=== PATIENT | male | born 1960 | race African-American/Black ===

== ENCOUNTER 2020-01-24 10:33 | Inpatient (IN) | payer OTHER ==
[~2020-01-24] VITALS: Ht 180.3 cm; Wt 68.5 kg
[2020-01-24 10:34] VITALS: BP 137/80
[2020-01-24 11:10] LABS: ABSOLUTE NEUTROPHILS 4.9 thou/uL (1.4-8.2); BASOPHILS 0.4 % (0.0-2.0); EOSINOPHILS 0.6 % (0.0-3.0); HEMATOCRIT 40.7 % (42.0-52.0); LYMPHOCYTES 25.9 % (24.0-44.0); MCH 33.6 pg (26.0-34.0); MCHC 34.5 g/dL (28.0-37.0); MCV 97.4 fL (80.0-100.0); MONOCYTES 8.7 % (1.0-8.0); PLATELET COUNT 247 thou/uL (150-400); POLYS 64.4 % (36.0-66.0); RBC 4.17 mil/uL (4.50-6.00); RDW 12.6 % (10.5-14.5); WBC 7.6 thou/uL (4.0-11.0)
[2020-01-24 11:14] LABS: ANION GAP 8 mmol/L (7-16); BUN 10 mg/dL (7-18); CALCIUM 9.4 mg/dL (8.5-10.1); CHLORIDE 92 mmol/L (98-107); CO2 29 mmol/L (21-32); CREATININE 1.5 mg/dL (0.7-1.3); GLUCOSE 130 mg/dL (74-106); SODIUM 129 mmol/L (136-145)
[2020-01-24 11:23] LABS: LIPASE 3809 U/L (73-393); MAGNESIUM 2.2 mg/dL (1.8-2.4); TROPONIN-I <0.06 ng/mL (<0.06)
[2020-01-24 14:10] VITALS: BP 126/96
--- NOTE | 2020-01-24 14:37 | EKG ---
[facility] [place] [address] ELECTROCARDIOGRAM REPORT Name: DESIRE NORMAN Room #: 170-3 ADM IN M.R.#: [id number] Admission: 01/24/20 Attend Phys: Jose Vega MD Discharge: Date of : 60 Report #: [id number] THIS REPORT FOR: cc: FAM - Family physician unknown FAM - Family physician unknown Martín Lowe MD ~ THIS REPORT FOR: //name// [facility] ED Test Date: 2020-01-24 Test Time: 11:17:29 Pat Name: DESIRE NORMAN Department: Room: [facility] Gender: M Hospital Unit Clerk: cecilia bruce : 1960 Requested By: Jean Quigley Order Number: [id number] MD: Martín Lowe Measurements Intervals [place] Rate: 87 P: 70 AK: 179 QRS: 49 QRSD: 93 T: 50 QT: 365 QTc: 439 Interpretive Statements Sinus rhythm RSR' in V1 or V2, probably normal variant No previous ECG available for comparison Electronically Signed On 01-24-2020 14:35:20 CDT by Martín Lowe [email or web address] <ELECTRONICALLY SIGNED> By: Martín Lowe MD 01/24/20 1435 1117 1117 Martín Lowe MD /DEJON
[2020-01-24 14:44] VITALS: BP 130/85
[2020-01-24 17:48] VITALS: BP 141/88
[2020-01-24 18:03] VITALS: BP 147/91
--- NOTE | 2020-01-25 04:06 | NUR ---
ASSUMED CARE AT 1900. PT REPORTS MODERATE HEADACHE, GIVEN TYLENOL ONCE AND AN ICE PACK; DENIES DIZZINESS OR VISION CHANGES, WELL ANY ALCOHOL WITHDRAWAL SYMPTOMS SUCH TREMORS, HALLUCINATIONS, OR SWEATS. DENIES NAUSEA, TOLERATING LIQUID DIET. IVF INFUSING OVERNIGHT; PT CALLS APPROPRIATELY FOR ASSISTANCE TO BATHROOM. NO OTHER CONCERNS, WILL CONTINUE TO MONITOR.
[2020-01-25 05:26] VITALS: BP 139/87
[2020-01-25 07:08] VITALS: BP 149/94
[2020-01-25 12:42] LABS: HEMATOCRIT 33.5 % (42.0-52.0); MCHC 33.7 g/dL (28.0-37.0); MCV 97.9 fL (80.0-100.0); PLATELET COUNT 220 thou/uL (150-400); RBC 3.42 mil/uL (4.50-6.00); RDW 12.6 % (10.5-14.5); WBC 7.1 thou/uL (4.0-11.0)
[2020-01-25 12:46] LABS: HEMOGLOBIN 11.3 gm/dL (14.0-18.0)
[2020-01-25 12:55] LABS: CALCIUM 8.3 mg/dL (8.5-10.1); CREATININE 0.8 mg/dL (0.7-1.3); POTASSIUM 3.4 mmol/L (3.5-5.1)
[2020-01-25 13:19] LABS: ABSOLUTE NEUTROPHILS 5.7 thou/uL (1.4-8.2); ANISOCYTOSIS 1+
[2020-01-25 13:20] LABS: POLYCHROMASIA OCCASIONAL
[2020-01-25 15:13] VITALS: BP 140/84
[2020-01-25 15:52] VITALS: BP 140/84
--- NOTE | 2020-01-25 15:53 | NUR ---
Case discussed with the care team and chart reviewed. Line Therapist spoke with the pt via phone. He is a&ox4 and indicates that he fell at work and hit his head/neck. He is feeling a little better today and hoping to go home tomorrow. He is and lives with his and adult kids. He does not have health insurance in place but his employer has put him in contact with the workers comp liason for his company. They will be sending him paperwork to complete. He is normally indep with gait and adl's. His can pick him up at sc and she is his primary contact. He is familiar with [facility] as well as other [facility] clinics. He is planning on est a pcp with one of these clinics at sc. He is familiar with AA but does not feel abstaining from ethol will be an issue for him. No cm interventions indicated at this time. [facility] resources noted on the pt's sc instructions.
--- NOTE | 2020-01-25 16:08 | NUR ---
PT A&OX4. AMBULATES WITH STANDBY ASSIST. IV INFUSING FLUIDS IN L AC W/O COMPS. DENIES SYNCOPE OR N/V. DOES HOWEVER C/O HEADACHE. TOLERATING PO WELL, TYLENOL GIVEN. CALL LIGHT W/I REACH.
[2020-01-25 19:10] VITALS: BP 143/97
[2020-01-26 00:34] VITALS: BP 149/93
[2020-01-26 04:00] VITALS: BP 137/81
[2020-01-26 05:50] LABS: HEMATOCRIT 32.3 % (42.0-52.0); HEMOGLOBIN 10.9 gm/dL (14.0-18.0); MCH 33.4 pg (26.0-34.0); MCHC 33.6 g/dL (28.0-37.0); MCV 99.3 fL (80.0-100.0); RBC 3.25 mil/uL (4.50-6.00); RDW 12.6 % (10.5-14.5); WBC 6.2 thou/uL (4.0-11.0)
[2020-01-26 05:55] LABS: CALCIUM 8.2 mg/dL (8.5-10.1); CREATININE 0.8 mg/dL (0.7-1.3); POTASSIUM 3.6 mmol/L (3.5-5.1)
--- NOTE | 2020-01-26 07:10 | NUR ---
PROGRESS PT A/O X4 , UP WITH SBA GAIT STEADY DENIES SYNCOPE. VSS. IV INFUSING WITHOUT DIFFICULTY. TAKING PO IN ADEQUATE AMOUNTS. FALL PRECAUTIONS IN PLACE PT USES CALL LIGHT APPROPRIATELY CONTINUE POC.
[2020-01-26 07:16] VITALS: BP 141/85
[2020-01-26 11:49] VITALS: BP 143/92
[2020-01-26 11:52] VITALS: BP 126/88
[2020-01-26 11:54] VITALS: BP 127/87
--- NOTE | 2020-01-26 14:04 | NUR ---
Assumed pt care this am, VS stable. diet and medications are tolerated well. POC followed witn no signs or verbalizations of distress noted. IV removed, dc instructions given to the pt. Pt is now dc.
== END 2020-01-26 13:55 | disposition home or self-care (01) | DRG 682 ==
LOC: ER 10:33 → EROBS 13:00 → 4W 17:57
PROVIDERS: Emergency Medicine; Internal Medicine; Nurse Practitioner; ADMIT Hospitalist
DX: N17.9 Acute kidney failure, unspecified (principal); K85.20 Alcohol induced acute pancreatitis without necrosis or infection; E87.1 Hypo-osmolality and hyponatremia; E87.6 Hypokalemia; F10.10 Alcohol abuse, uncomplicated; I10 Essential (primary) hypertension; Z96.643 Presence of artificial hip joint, bilateral; Z88.6 Allergy status to analgesic agent; Z79.899 Other long term (current) drug therapy
CPT/HCPCS: 10045

== ENCOUNTER 2020-03-31 08:26 | Emergency (ER) | payer OTHER ==
[~2020-03-31] VITALS: Ht 180.3 cm; Wt 68.5 kg
[2020-03-31 10:13] VITALS: BP 157/110
[2020-03-31] MEDS ORDERED: ULTRAM 50MG TAB50 MG PO (10:15)
== END 2020-03-31 10:13 | disposition home or self-care (01) ==
LOC: ER 08:26
DX: S30.0XXA Contusion of lower back and pelvis, initial encounter (principal); S50.01XA Contusion of right elbow, initial encounter; I10 Essential (primary) hypertension; Z88.6 Allergy status to analgesic agent; W11.XXXA Fall on and from ladder, initial encounter; Y93.89 Activity, other specified; Y92.89 Other specified places as the place of occurrence of the external cause; Y99.8 Other external cause status

== ENCOUNTER 2021-03-04 11:03 | Inpatient (IN) | payer OTHER ==
[~2021-03-04] VITALS: Ht 180.3 cm; Wt 68.0 kg
--- NOTE | ~2021-03-04 | O ---
[facility] [place] [address] OPERATIVE REPORT Name: PAWAN NORMAN Room #: 440-P ADM IN M.R.#: [id number] Admission: 03/04/21 Attend Phys: Brigido Cotton MD Discharge: Date of : 60 Report #: [id number] THIS REPORT FOR: cc: FAM - Family physician unknown FAM - Family physician unknown Tatyana Manrique MD ~ DOC #: [id number] Tatyana Manrique MD DATE OF SERVICE: 03/04/2021 PREOPERATIVE DIAGNOSIS: Left infectious olecranon bursitis. POSTOPERATIVE DIAGNOSIS: Left infectious olecranon bursitis. PROCEDURE PERFORMED: Left elbow incision and debridement, olecranon bursa and subcutaneous tissue. SURGEON: Tatyana Manrique MD ANESTHESIA: General mask anesthesia. ESTIMATED BLOOD LOSS: Minimal. TOURNIQUET TIME: 24 minutes. COMPLICATIONS: None. CONDITION: Stable. DISPOSITION: Recovery room. IMPLANTS USED: Hemovac was placed. INDICATIONS: The patient is a 60-year-old male with the above-mentioned diagnosis. He elects for operative treatment. The risks, benefits, alternatives and complications were discussed including but not limited to infection, damage to vessels or nerves, incomplete relief or worsening of any symptoms. Informed consent was obtained. The correct extremity was identified and labeled by myself after verbal confirmation of the patient as well as visual confirmation and signed informed consent. DESCRIPTION OF PROCEDURE: The patient was brought to the OR and placed in a supine position. He had previously been placed on antibiotics and cultures taken in ER. Left extremity was sterilely prepped and draped in the usual fashion. Final timeout was taken to verify correct patient, operative procedure, operative site, all concurred. The arm was elevated, but was not [address] [address] OPERATIVE REPORT Name: PAWAN NORMAN Room #: 440-P ADM IN M.R.#: [id number] Admission: 03/04/21 Attend Phys: Brigido Cotton MD Discharge: Date of : 60 Report #: [id number] exsanguinated and the tourniquet was inflated. Next, a wound measuring approximately 5 mm noted on the posterior aspect of the olecranon. Copious amounts of purulent fluid were obtained during the prepping and draping. The wound was extended for approximately 5 cm distal and 3 cm proximal. A rongeur was used to debride any portion of the bursa as well as any unhealthy tissue. The fluid tracked subcutaneously for approximately 10 cm. This area was thoroughly debrided as well. Once the area was thoroughly debrided, 3 liters of antibiotic saline were irrigated through the wound. Good care of milk to perform a retrograde milking type maneuver in order to locate and debride any distal subcutaneous tracts of purulent fluid. Once this was done to satisfaction, the wound was then closed with 3-0 nylon suture. A deep drain was placed. It was affixed to skin with an Op-Site. The wound was dressed with Xeroform and sterile gauze. He was placed in a bulky dressing and a posterior slab elbow splint. All fingers were pink and brisk capillary refill at the conclusion of the case. After deflation of tourniquet, all sponge and needle counts were correct. The patient transferred to postoperative recovery room in stable condition. Tatyana Manrique MD VAD/KDA By: 1832 [id number] Tatyana Manrique MD /nt
--- NOTE | ~2021-03-04 | HC ---
[facility] [place] [address] CONSULTATION Name: PAWAN NORMAN Room #: 440-P ADM IN M.R.#: [id number] Admission: 03/04/21 Attend Phys: Brigido Cotton MD Discharge: Date of : 60 Report #: [id number] THIS REPORT FOR: cc: FAM - Family physician unknown FAM - Family physician unknown Tatyana Manrique MD ~ DOC #: [id number] Tatyana Manrique MD DATE OF SERVICE: 03/04/2021 On clarification, the patient did not have another fall yesterday resulting in hip pain. He reports moving and feeling a pop and having left hip pain after the pop. Tatyana Manrique MD VAD/PUN By: [id number] 2234 Tatyana Manrique MD /nt
--- NOTE | ~2021-03-04 | HC ---
[facility] [place] [address] CONSULTATION Name: PAWAN NORMAN Room #: 440- ADM IN M.R.#: [id number] Admission: 03/04/21 Attend Phys: Brigido Cotton MD Discharge: Date of : 60 Report #: [id number] THIS REPORT FOR: cc: FAM - Family physician unknown FAM - Family physician unknown Tatyana Manrique MD ~ DOC #: [id number] Tatyana Manrique MD DATE OF SERVICE: 03/04/2021 REASON FOR CONSULTATION: Left elbow abscess with drainage. HISTORY OF PRESENT ILLNESS: The patient is a 60-year-old right hand dominant male who has had multiple falls over the last few weeks. He reports falling off his porch approximately 8 days ago and sustaining a wound to his left posterior elbow. He had some bleeding and then purulent drainage that has worsened over the last week with increasing pain and swelling. He also reported another fall yesterday and reports difficulty weightbearing and left hip pain. He has had no treatment. REVIEW OF SYSTEMS: NEUROLOGIC: Denies numbness or tingling. MUSCULOSKELETAL: See HPI. SURGICAL HISTORY: Bilateral total hip arthroplasties and right wrist tendon repair. ALLERGIES: ASPIRIN. MEDICATIONS: Home medications from the list include tramadol. PAST MEDICAL HISTORY: Significant for hypertension and probable alcohol abuse. 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 Denies smoking. Does use marijuana daily. Drinks about half a pint and 2 beers daily. LABORATORY STUDIES: On 03/04/2021 showed white blood cell count 21.6, hemoglobin 11.7, hematocrit 34, platelet count 341. ESR is 144. Chemistry: Sodium 134, potassium is low at 2.7. CRP is elevated at 221. COVID test is negative. PHYSICAL EXAMINATION: GENERAL: He is awake, alert and oriented. He interacts appropriately. He is a well-developed, but thin male in no acute distress. He is lying on his stretcher. [address] [address] CONSULTATION Name: PAWAN NORMAN Room #: [address] [place] [address] IN M.R.#: [id number] Admission: 03/04/21 Attend Phys: Brigido Cotton MD Discharge: Date of : 60 Report #: [id number] VITAL SIGNS: Most recent vital signs show a heart rate of 88, respiratory rate 16, blood pressure 128/81, pulse oximetry is 99% on room air. EXTREMITIES: Examination of his right upper extremity, skin is clean, dry and intact, brisk capillary refill, grossly motor and sensory intact. Left upper extremity: Brisk capillary refill. Grossly normal sensory and motor. His skin is clean and dry and intact with the exception of posterior olecranon wound that measures approximately 5 mm and purulent fluid is emanating from it. There is also moderate amount of erythema and edema in the proximal portion of the arm. The compartments are soft. He is able to make full fist, full extension. Bilateral lower extremity exam: He is very thin. His greater tuberosities were palpable. He has tenderness on the greater tuberosity on the left, none on the right. No pain with hip range of motion bilaterally. Motor and sensory are grossly intact. Skin is clean, dry and intact. RADIOGRAPHS: AP and lateral of the left elbow showed no bony abnormality. MRI IV contrast: The left elbow does not show any osseous abnormality or indication of osteomyelitis. Of note, there is gas in the soft tissues, presumably from the wound. IMPRESSION AND PLAN: 1. Left infected olecranon bursitis with copious amount of purulent fluid draining. Recommend incision and drainage. We discussed the procedure as well as postoperative course. The risks, benefits, alternatives and complications were discussed including but not limited to inability to resolve the infection, necessitating more surgery, infection, wound healing problems, damage to blood vessels or nerves. Informed consent was obtained. 2. left hip pain. We will order radiographs upon arrival to the postoperative recovery room after surgery as I do not want to delay debridement of this infected olecranon bursa. MD SILVINO Burnham/ROSE/LEONEL By: [id number] [id number] Tatyana Manrique MD /nt
[~2021-03-04 11:03] MED LIST: ULTRAM 50MG TAB50 MG PO
[2021-03-04 11:05] VITALS: BP 115/72
[2021-03-04 12:10] LABS: HEMOGLOBIN 11.7 gm/dL (14.0-18.0); MCH 32.5 pg (26.0-34.0); MCHC 34.4 g/dL (28.0-37.0); MCV 94.4 fL (80.0-100.0); PLATELET COUNT 341 thou/uL (150-400); RDW 12.5 % (10.5-14.5); WBC 21.6 thou/uL (4.0-11.0)
[2021-03-04 12:21] LABS: CREATININE 1.2 mg/dL (0.7-1.3)
[2021-03-04 12:29] LABS: POTASSIUM 2.7 mmol/L (3.5-5.1)
[2021-03-04 12:48] LABS: ALBUMIN 2.3 g/dL (3.4-5.0); DIRECT BILIRUBIN 0.2 mg/dL (<0.1-0.2); TOTAL BILIRUBIN 0.5 mg/dL (0.2-1.0)
[2021-03-04 13:31] LABS: ABSOLUTE NEUTROPHILS 18.1 thou/uL (1.4-8.2)
[2021-03-04 13:32] LABS: ANISOCYTOSIS SLIGHT
[2021-03-04 14:36] LABS: BE(vivo) 7.3 mmol/L (-2 to +3); HCO3 32.3 mmol/L (22.0-26.0); PCO2 VENOUS 46.9 mmHg (41.0-51.0)
--- NOTE | 2021-03-04 18:00 | NUR ---
PT RECEIVED FROM THE ER AT 1500 AFTER REPORT FROM RN. BARBI DANIELLE AND KCL INFUSING ON ADMISSION. PT SEEN BY DR. BUNN IN ER AND PLANS ON DOING SURGERY ON LT ELBOW INFECTION. PT HAS BEEN NPO. 2ND BAG OF KCL INFUSING. DR. GALINDO CONSULTED AND WILL SEE PT IN AM. PT TO THE OR AT THIS TIME PER BED.
[2021-03-04 20:30] VITALS: BP 151/77
[2021-03-04 21:00] VITALS: BP 137/92
[2021-03-04 22:00] VITALS: BP 137/92
[2021-03-04 23:03] VITALS: BP 142/92
[2021-03-05] VITALS: BP 148/88
--- NOTE | 2021-03-05 04:16 | NUR ---
PT ARRIVED FROM SURGERY AT 202O. A&OX4. IV INTACT WITH FLUIDS INFUSING. VITAL SIGNS STABLE. 100% ON RA. HYDROCODONE GIVEN FOR PAIN OF 5/10. HEMOVAC DRAIN INTACT. LEFT ELBOW DRESSING WRAPPED. URINAL BY BEDSIDE. PT HENRIETTA CLEAR LIQUID DIET. FALL PREC IN PLACE AND CALL LIGHT AT REACH WILL CONT TO MONITOR.
[2021-03-05 04:38] VITALS: BP 155/98
[2021-03-05 05:38] LABS: ABSOLUTE NEUTROPHILS 21.3 thou/uL (1.4-8.2); BASOPHILS 0.2 % (0.0-2.0); HEMATOCRIT 35.7 % (42.0-52.0); LYMPHOCYTES 3.4 % (24.0-44.0); MCH 32.2 pg (26.0-34.0); MCHC 33.5 g/dL (28.0-37.0); MCV 96.2 fL (80.0-100.0); MONOCYTES 3.8 % (1.0-8.0); PLATELET COUNT 383 thou/uL (150-400); POLYS 92.6 % (36.0-66.0); RBC 3.71 mil/uL (4.50-6.00); RDW 12.8 % (10.5-14.5)
[2021-03-05 05:48] LABS: CALCIUM 8.8 mg/dL (8.5-10.1); MAGNESIUM 2.3 mg/dL (1.8-2.4); POTASSIUM 3.2 mmol/L (3.5-5.1)
--- NOTE | 2021-03-05 07:17 | EKG ---
[place] [address] [facility] [place] [address] ELECTROCARDIOGRAM REPORT Name: PAWAN NORMAN Room #: 440-P ADM IN M.R.#: [id number] Admission: 03/04/21 Attend Phys: Brigido Cotton MD Discharge: Date of : 60 Report #: [id number] [facility] ED Test Date: 2021-03-04 Test Time: 11:40:16 Pat Name: PAWAN NORMAN Department: Room: 440 Gender: M Operations Intelligence Superintendent: JCHAIKAROLINE : 1960 Requested By: Antonio Mcneil Order Number: [id number] MD: Gerard Cardona Measurements Intervals [place] Rate: 84 P: 72 AR: 177 QRS: 33 QRSD: 98 T: 46 QT: 348 QTc: 412 Interpretive Statements Sinus rhythm Probable left atrial enlargement RSR' in V1 or V2, probably normal variant Compared to ECG 01/24/2020 11:17:29 No significant changes Electronically Signed On 03-05-2021 7:17:17 CDT by Gerard Cardona [email or web address] <ELECTRONICALLY SIGNED> By: Gerard Cardona MD, [facility] 03/05/21 0717 1140 1140 Gerard Cardona MD, [facility] /EPI
[2021-03-05 08:02] VITALS: BP 145/87
--- NOTE | 2021-03-05 11:44 | NUR ---
ASSUMED PT CARE THIS AM. PATIENT A&OX4, ABLE TO MAKE NEEDS KNOWN. IV PATENT, SALINE LOCKED. LEFT ELBOW DRESSING C/D/I. PATIENT HAS A HEMOVAC IN PLACE. PATIENT REPORTING NO PAIN. CIWA BEING COMPLETED ORDERED. PATIENT REMAINS CONTINENT, AMBULATORY WITH ASSIST TO THE BATHROOM. PATIENT REPORTS HAVING A BOWEL MOVEMENT YESTERDAY. PATIENT IS ON ROOM AIR. PATIENT ABLE TO MOVE FINGERS ON BOTH HANDS WITHOUT ISSUE, REPORTING NO NUMBNESS OR TINGLING. PATIENT TOOK ALL MEDICATIONS WITHOUT ISSUE. FALL PRECAUTIONS ARE IN PLACE, CALL LIGHT WITHIN REACH.
--- NOTE | 2021-03-05 14:21 | NUR ---
ASSESSMENT: CM REVIEWED CHART AND SPOKE WITH PATIENT AT THE BEDSIDE. PT IS ALERT AND ORIENTED X4. PT REPORTS THAT HE LIVES IN A DUPLEX WITH HIS , TWO CHILDREN, AND GRANDCHILDREN. PT REPORTS THAT HE IS NORMALLY INDEPENDENT BUT DOES HAVE A WALKER AT HOME TO ASSIST IF NEEDED. PT WAS ADMITTED WITH GAS GANGRENE OF UPPER EXTREMITY. PT IS CURRENTLY ON IV ANBX AND ID IS FOLLOWING. PT REPORTS HE HAS HAD HOME HEALTH YEARS AGO BUT UNSURE THE AGENCY. PT REPORTS IF HE NEEDS HH AGAIN HE HAS NO PREFERENCE OF HH AGENCY. PT REPORTS HE HAS ONE STEP TO GET IN THE HOME AND TO HIS BEDROOM. PT REPORTS HE HAS NOT HAD A POST ACUTE CARE STAY IN THE PAST. CM WILL CONTINUE TO FOLLOW TO ASSIST NEEDED. AWAITING ON DETERMINATION OF PLAN FOR ANBX WELL.
[2021-03-05 15:16] VITALS: BP 127/87
[2021-03-05 19:23] VITALS: BP 132/92
--- NOTE | 2021-03-06 03:26 | NUR ---
ASSESSED AT START OF SHIFT. PT RESTING IN BED. HYDROCODONE GIVEN FOR LEFT ELBOW PAIN. DRESSING C/D/I. UP WITH SBA TO THE BATHROOM. CIWA SCORE 0. NO SIGNS AND SYMPTOMS OF ALCOHOL WITHDRAWAL. FALL PREC IN PLACE. IV ABX PROVIDED. WILL CONT TO MONITOR TILL EOS.
[2021-03-06 04:32] VITALS: BP 151/111
[2021-03-06 08:15] VITALS: BP 176/102
--- NOTE | 2021-03-06 10:29 | NUR ---
ASSUMED PT CARE THIS AM. PT A&OX4, ABLE TO MAKE ALL NEEDS KNOWN. IV PATENT, SALINE LOCKED. DRESSING TO LEFT ELBOW REMAINS C/D/I. PATIENT REPROTS PAIN THAT RESPINDS WELL TO PAIN MEDS GIVEN PER EMAR. PATIENT HAS A HEMOVAC TO THE LEFT ELBOW. CIWA ASSESSMENT BEING COMPLETED. PATIENT ON ROOM AIR. BOTH IV'S REMAIN PATENT. PATIENT TOOK ALL MEDS WITHOUT ISSUE. BLOOD PRESSURE WAS ELEVATED WITH MORNING VITALS, PHYSICIAN NOTIFIED AND NEW ORDER RECEIVED. FALL PRECAUTIONS ARE IN PLACE, CALL LIGHT WITHIN REACH.
--- NOTE | 2021-03-06 11:47 | HC ---
[facility] [place] [address] CONSULTATION Name: PAWAN NORMAN Room #: 440- ADM IN M.R.#: [id number] Admission: 03/04/21 Attend Phys: Brigido Cotton MD Discharge: Date of : 60 Report #: [id number] THIS REPORT FOR: cc: FAM - Family physician unknown FAM - Family physician unknown Campbell Mauricio MD ~ DOC #: [id number] Campbell Mauricio MD DATE OF SERVICE: 03/05/2021 INFECTIOUS DISEASE CONSULTATION ATTENDING PHYSICIAN: Dr. Cotton. REASON FOR EVALUATION: Left olecranon septic bursitis. HISTORY OF PRESENT ILLNESS: Chart reviewed. The patient examined. This is a 69-year-old man with history of hypertension, previous pancreatitis, who sustained injury as a result of a fall to the left elbow. He noted increasing pain and discomfort at the site. He was evaluated in the Emergency Room. The plain film showed soft tissue swelling, nothing for bony abnormality or subluxation. There was gas within the soft tissue; however, markedly elevated CRP to 221. MRI of the elbow was done, it showed circumferential subcutaneous edema, did undergo operative debridement, was found to have a septic olecranon bursitis, did have markedly elevated sed rate of 118 as well. Blood cultures are sterile thus far. Culture now with growth of group A strep. He notes he feels significantly better at this point, had been empirically started on vancomycin and Zosyn. ALLERGIES: ASPIRIN. MEDICATIONS: Include thiamine, famotidine, Zosyn, p.r.n. analgesics, antiemetics, anxiolytics vancomycin. PAST MEDICAL HISTORY: As noted above, hypertension, bilateral hip replacements, history of pancreatitis, history of depression. SOCIAL HISTORY: Does not smoke tobacco. Occasional illicit drug use, marijuana. He has history of ethanol excess; now reports special occasions. FAMILY HISTORY: Noncontributory. REVIEW OF SYSTEMS: Otherwise, unremarkable. Denies any pulmonary or gastrointestinal related complaints. PHYSICAL EXAMINATION: [facility] [address] [place] [address] CONSULTATION Name: PAWAN NORMAN Room #: 440-P [facility] IN M.R.#: [id number] Admission: 03/04/21 Attend Phys: Brigido Cotton MD Discharge: Date of : 60 Report #: [id number] GENERAL: Appears somewhat chronically ill, undernourished; he is pleasant, cooperative. He is lucid. VITAL SIGNS: Temperature 98.7, pulse 61, respirations 18, blood pressure 145/87. SKIN: Warm, dry, no rashes. HEENT: Normocephalic. Extraocular muscles intact. NECK: Supple. LUNGS: Clear to auscultation bilaterally. HEART: Regular. I do not appreciate a murmur, borderline bradycardic. ABDOMEN: Soft, nontender, nondistended. SKIN: Left upper extremity mid portion has a surgical dressing in place with drain. GENITOURINARY AND RECTAL: Deferred. LABORATORY DATA: Culture with growth of group B strep. Blood cultures sterile thus far. Sed rate 118. Electrolytes: Sodium 135, potassium 3.2, chloride 96, bicarbonate 30, anion gap of 9, BUN and creatinine 13 and 1.0, glucose of 110. CBC: White count of 23, H and H of 12.0 and 35.7, platelets of 383. MRI as described above. ASSESSMENT AND PLAN: Left septic bursitis secondary to group A strep. We will adjust antimicrobial therapy. Continue with Unasyn. Pending further results. Likely a mono-microbial etiology. Continue wound care as prescribed. He is dramatically improved subjectively. Continue to optimize nutritional status. Add incentive spirometry. Monitor expectantly for possibility of withdrawal. Campbell Mauricio MD JWLuis Daniel/STANTON <ELECTRONICALLY SIGNED> By: Campbell Mauricio MD 03/06/21 1147 0939 1103 Campbell Mauricio MD /nt
--- NOTE | 2021-03-06 15:00 | NUR ---
ON-GOING ASSESSMENT; CM REVIEWED CHART AND SPOKE WITH PT. PT REMAINS ON IV ANBX BUT ATTENDING ANTICIPATES PT WILL LIKELY BE ABLE TO TRANSITION TO PO ANBX. ID IS FOLLOWING. CM DISCUSSED HH WITH PATIENT AND HE IS AGREEABLE WITH REFERRAL AND HAS NO PREFERENCE OF HH AGENCY. REFERRAL WAS SENT TO [facility].
[2021-03-06 15:48] VITALS: BP 141/91
[2021-03-06 20:00] VITALS: BP 109/78
--- NOTE | 2021-03-07 01:45 | NUR ---
ASSESSED AT START OF SHIFT. PT RESTING IN BED. A&OX4. RATES PAIN 6/10 HYDROCODONE GIVEN. LEFT ELBOW DRESSING INTACT. IV IN PLACE AND ABX GIVEN. NO FURTHER SIGNS OF DISCOMFORT WILL CONT TO MONITOR.
[2021-03-07 04:13] VITALS: BP 150/80
[2021-03-07 05:46] LABS: MCH 32.2 pg (26.0-34.0); MCHC 33.4 g/dL (28.0-37.0); MCV 96.2 fL (80.0-100.0); RBC 3.11 mil/uL (4.50-6.00); RDW 12.9 % (10.5-14.5)
[2021-03-07 08:00] VITALS: BP 121/52
--- NOTE | 2021-03-07 15:34 | NUR ---
ON-GOING ASSESSMENT: CM REVIEWED CHART. ID IS FOLLOWING PATIENT AND RECOMMENDING CEFTRIAXONE 2 GM IV DAILY. CM SPOKE WITH PATIENT. CM ENCOURAGED PATIENT TO CONTACT HR AT [employer] WHO WAS HIS EMPLOYER AND ASK IF HIS INSURANCE CEASED THE DAY HE WAS LET GO AND IF HE IS ELEGIBILE FOR COBRA AND IF SO HOW MUCH IT COST. PT REPORTS HE WOULD CONTACT THEM. CM MET AGAIN WITH PATIENT AND REPORTS HE WAS SO UPSTE HE HUNG UP ON THEM BUT STATES HE DOES NOT HAVE ACTIVE INSURANCE AND TO HIS UNDERSTANDING IT STOPPED THE DAY HE WAS LET GO. CM NOTIFIED ATTENDING. CM ALSO DISCUSSED WITH TEAM DURING LOS AND ALTERNATIVE OPTIONS. 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 JANE THERE AFTER FOR PLAN. CM DIRECTOR NOTIFIED OUTPT THERAPY. PT HAD PICC PLACED. AWAITING FINAL DECISION AT THIS TIME.
[2021-03-07 16:17] VITALS: BP 134/78
--- NOTE | 2021-03-07 17:20 | NUR ---
A #4F SINGLE LUMEN PICC WAS PLACED PER HOSPITAL POLICY IN THE RIGHT UPPER ARM BASILIC. THE VEIN WAS WIDLEY PATENT. THE LINE WAS TRIMMED TO 44CM AND ADVANCED AND CONFIRMED AT 2CM EXTERNAL. LINE WAS SECURED AND RELEASED FOR USE
--- NOTE | 2021-03-07 18:30 | NUR ---
PT ASSESSED AT START OF SHIFT. STATES LT ARM NOT HURTING NOW. DSNG CHANGED ELBOW SUTURES INTACT -SEROSANGUINOUS DRAINAGE ON ABD. REDRESSED W/ XEROFORM, ABD AND COTTON WRAP W/ VAL WRAP OVER. EATING ADN DRINKING BETTER. IV ANTIBIOTICS CHANGED PER DR. JANE. PICC LINE PLACED PER IV NURSE THIS AFTERNOON. PLANS FOR DC TOMORROW AND WILL COME FOR IV ANTIBIOTICS DAILY AT THE HOSPITAL.
[2021-03-07 20:10] VITALS: BP 105/62
--- NOTE | 2021-03-08 01:30 | NUR ---
ASSUMED PT CARE AT 1935. INTRODUCED SELF TO PT. PT WAS PLEASANT AND INTERACTIVE. PT'S DRSG ON THE L ELBOW CLEAN AND INTACT AND NO DRAINAGE WAS NOTED. PT COMPLAINED OF PAIN TO THE L HIP AND ELBOW WHICH WAS MANAGED WITH MEDS. PT HAD A PICC WITH ONE LUMEN, DRSG WAS INTACT AND NO SIGN OF REDNESS OR INFILTRATION WAS NOTED. FALL PRECAUTIONS IN PLACE AND CALL LIGHT WITHIN REACH.
[2021-03-08 03:43] VITALS: BP 140/105
[2021-03-08 04:32] VITALS: BP 109/73
--- NOTE | 2021-03-08 05:45 | NUR ---
TUBING DRIER called for sudden onset of chest pain. See TUBING DRIER flowsheet.
--- NOTE | 2021-03-08 06:38 | NUR ---
THIS NURSE WAS CALLED TO THE PT'S ROOM FOR C/O SUDDEN ONSET OF CHEST PAIN. PT STATED THAT THE PAIN STARTED ALMOST AN HOUR BEFORE HE CALLED OUT.PT STATED THAT HE HAS HAD THAT KIND OF PAIN A COUPLE OF TIMES IN THE PAST THAT WAS WHY HE DID NOT CALL OUT IMMEDIATELY.VITALS WAS STABLE WERE BP 145/104,P 82,O2 SAT 100% ON RA,R 20 T 98.4.STAND UP FORKLIFT OPERATOR ON DUTY AND BACK TENDER NOTIFIED.RAPID RESPONSE TEAM CALLED.STAT EKG DONE PER ORDER.NITRO GIVEN X1,PT STATED THAT HE FELT BETTER.PT WAS TRANSFERRED TO CCU RM 209 IN A STABLE CONDITION.PT LEFT WITH ALL HIS PERSONAL BELONGINGS.VITALS BEFORE HE LEFT WAS BP 101/64,O2 SAT 100%, P 100, R 17.RPORT CALLED TO THE NURSE TAKING THE PT.
[2021-03-08 07:55] VITALS: BP 108/74
--- NOTE | 2021-03-08 09:09 | EKG ---
[address] [place] [address] ELECTROCARDIOGRAM REPORT Name: PAWAN NORMAN Room #: 206-P ADM IN M.R.#: [id number] Admission: 03/04/21 Attend Phys: Brigido Cotton MD Discharge: Date of : 60 Report #: [id number] [facility] Test Date: 2021-03-08 Test Time: 03:48:41 Pat Name: PAWAN NORMAN Department: Room: 206 Gender: M Fire Protection Specialist: FABIO : 1960 Requested By: Malia Gray Order Number: [id number] MD: Avelino Polk Measurements Intervals [place] Rate: 81 P: 48 [place]: 57 QRS: 34 QRSD: 104 T: 31 QT: 359 QTc: 417 Interpretive Statements Sinus rhythm No significant abnormality Compared to ECG 03/04/2021 11:40:16 No significant change Electronically Signed On 03-08-2021 9:09:20 CDT by Avelino Polk [email or web address] <ELECTRONICALLY SIGNED> By: Avelino Polk MD, [facility] 03/08/21908 0348 0348 Avelino Polk MD, FAC /EPI
[2021-03-08] MEDS ORDERED: CLONIDINE HCL0.1 MG PO (09:29)
[2021-03-08] MEDS ORDERED: HYDROCODON-ACE1 EAC7 PO (09:29)
[2021-03-08] MEDS ORDERED: ROCEPHIN 11 GM/1001 IV (09:29)
[2021-03-08] MEDS ORDERED: PROTONIX40 M2 PO (09:31)
[2021-03-08 11:04] VITALS: BP 108/74
--- NOTE | 2021-03-08 13:48 | NUR ---
on-going assessment: CM REVIEWED CHART AND SPOKE WITH ATTENDING WELL PATIENT. PT WAS MOVED TO CCU DUE TO CHEST PAIN. CM SPOKE WITH ATTENDING AND PLANS ARE TO DISCHARGE HOME TODAY. CM REACHED OUT TO CM DIRECTOR AND ALSO OUTPATIENT INFUSION CLINIC [facility] HAS APPROVED FOR ONE WEEK CEFTRIANXONE 2GM IV DAILY AT [facility] OUTPATIENT INFUSION. PT HAS PICC LINE IN. [facility] IS NOTIFIED AND AWARE OF SITUATION. CM ALSO SPOKE WITH PATIENT AND INSTRUCTED HIM THAT HE WILL HAVE TO COME IN THE ER ON THURSDAY AND THURSDAY FOR HIS INFUSION AND TO CONTACT THE ER AN HOUR BEFORE HE ARRIVES. CM PROVIDED PATIENT WITH THE CONTACT NUMBER. PT IS THEN TO COME TO THE [facility]ION [facility] AND CONTACT [facility] WHEN HE IS ON HIS WAY. CM NOTIFIED PT AND PROVIDED THE NUMBER FOR OUTPATIENT INFUSION AND ALSO INCLUDED THIS ON THE DISCHARGE PAPERWORK. CM ALSO SPOKE WITH CM DIRECTOR AND VOUCHERED HIS MEDICATION COSTING 24.55. PTS IS HERE TO PROVIDE TRANSPORTATION HOME AND WILL BE ABLE TO TAKE HIM TO AND FROM OUTPATIENT INFUSION. PT REPORTS NO FURTHER NEEDS FROM CM. REPORTS SHE IS STILL FOLLOWING UP WITH HIS EMPLOYER FOR POSSIBLE [employer] INSURANCE.
--- NOTE | 2021-03-08 13:59 | NUR ---
ASSESSMENT CHARTED. PT ALERT AND ORIENTED. VSS. DENIED HAVING PAIN OR DISCOMFORT. SEEN BY DR. CARDONA. ORDERS GIVEN TO DISCHARGE PT TO HOME. DISCHARGE INSTRUCTIONS GIVEN TO PT AND THE . THEY BOTH VERBERLISED UNDERSTANDING.
== END 2021-03-08 14:15 | disposition home or self-care (01) | DRG 501 ==
LOC: ER 11:03 → EROBS 13:21 → 4S 13:21 → 2N 03-08 04:29
PROVIDERS: Emergency Medicine; Hospitalist; ADMIT Internal Medicine; ATTEND Internal Medicine
PROC: 0JDH0ZZ Extraction of Left Lower Arm Subcutaneous Tissue and Fascia, Open Approach (ICD-10-PCS; 2021-03-04)
PROC: 02HV33Z Insertion of Infusion Device into Superior Vena Cava, Percutaneous Approach (ICD-10-PCS; principal; 2021-03-07)
DX: M71.122 Other infective bursitis, left elbow (principal); I96 Gangrene, not elsewhere classified; I10 Essential (primary) hypertension; Z96.643 Presence of artificial hip joint, bilateral; E87.6 Hypokalemia; F32.9 Major depressive disorder, single episode, unspecified; B95.0 Streptococcus, group A, as the cause of diseases classified elsewhere; M71.022 Abscess of bursa, left elbow; F10.10 Alcohol abuse, uncomplicated; Z60.2 Problems related to living alone; Z20.822 Contact with and (suspected) exposure to COVID-19; Z88.6 Allergy status to analgesic agent; Z79.899 Other long term (current) drug therapy
CPT/HCPCS: 10102; 27000; 50010; 50101; 50386; 53078; 56527; 57006; 57091; 57103; 57178; 62110; 62900; 70005

== ENCOUNTER → 2021-03-09 | Outpatient (CLI) | payer OTHER ==
[~2021-03-09] MED LIST changes: +CLONIDINE HCL0.1 MG PO; +HYDROCODON-ACE1 EAC7 PO; +NORCO5 PO; +PROTONIX40 M2 PO; +ROCEPHIN 11 GM/1001 IV
[2021-03-09 10:23] VITALS: BP 96/63
[2021-03-09 10:39] VITALS: BP 90/59
[2021-03-09 11:15] VITALS: BP 113/78
== END ==
LOC: OPONC 12:00
PROVIDERS: ATTEND Specialist
DX: M71.122 Other infective bursitis, left elbow (principal); B95.0 Streptococcus, group A, as the cause of diseases classified elsewhere
CPT/HCPCS: 95000

== ENCOUNTER → 2021-03-10 | Outpatient (CLI) | payer OTHER ==
[2021-03-10 08:03] VITALS: BP 121/48
== END ==
LOC: OPONC 12:00
PROVIDERS: ATTEND Specialist
DX: M71.122 Other infective bursitis, left elbow (principal); B95.0 Streptococcus, group A, as the cause of diseases classified elsewhere
CPT/HCPCS: 95000

== ENCOUNTER → 2021-03-11 | Outpatient (CLI) | payer OTHER ==
[2021-03-11 09:55] VITALS: BP 97/75
[2021-03-11 10:20] VITALS: BP 97/75
--- NOTE | 2021-03-11 10:20 | NUR ---
HERE FOR DAILY IV CEFTRIAXONE. REPORTS DOING WELL. STATES PAIN WELL MANAGED WITH HIS PAIN PILL. NO PAIN AT REST THIS MORNING. REWRAPPED VAL BANDAGE BUT LEFT PADDING, DRESSING AND SPLINT IN PLACE. NO EDEMA IN HAND, HAS GOOD FEELING, FINGERS WARM, MOVES ALL WELL. DENIES N/V/DIARRHEA, FEVER/CHILLS. STATES EATING WELL. PICC DSG INTACT, NO PAIN OR EDEMA IN ARM. TOLERATED INFUSION WITHOUT INCIDENT. REVIEWED WITH PT PLAN TO SEE DR. GALINDO HERE WHEN IN FOR HIS THURSDAY INFUSION, TO COME EVERY SINGLE DAY FOR HIS IV INFUSION AND NEED TO F/U WITH DR. PATTERSON ADVISED. PT STATES HE WAS NOT GIVEN AN APPT WITH HER. I CALLED AND SPOKE WITH THE PA, FAXED OVER DEMOGRAPHIC SHEET, OP REPORT AND DR. PATTERSON'S PROGRESS NOTE. PA STATES THEY WILL REACH OUT TO PATIENT WITH AN APPT TIME. CONFIRMED PLAN WITH DR. GALINDO TO SEE ON THURSDAY. HE AFFIRMS. PT DISMISSED IN STABLE CONDITION. SCHEDULED TO RETURN AGAIN TOMORROW MORNING.
== END ==
LOC: OPONC 09:30
PROVIDERS: ATTEND Specialist
DX: M71.122 Other infective bursitis, left elbow (principal); B95.0 Streptococcus, group A, as the cause of diseases classified elsewhere
CPT/HCPCS: 95000

== ENCOUNTER → 2021-03-12 | Outpatient (CLI) | payer OTHER ==
[2021-03-12 10:31] VITALS: BP 117/72
--- NOTE | 2021-03-12 10:50 | NUR ---
HERE FOR DAILY IV CEFTRIAXONE. STATES DOING WELL, EATING WELL. DENIES N/V/DIARRHEA, FEVER/CHILLS. PICC DRSG REMAINS INTACT, BRISK BLOOD RETURN. LEFT HAND SLIGHTLY SWOLLEN, FINGERS MOVE WELL. VAL WRAP RE-WRAPPED WRIST TO MID UPPER ARM. SPLINT AND GAUZE REMAIN IN PLACE. PT STATES HE HAS NOT YET HEARD FROM DR. PATTERSON'S OFFICE TO SET UP THAT FOLLOW UP VISIT. PT STATES HIS WAS BROUGHT TO OUR ED THIS MORNING AND THEY HAVE DIAGNOSED HER WITH COVID. PT AND BOTH UNVACCINATED. PT CURRENTLY ASYMPTOMATIC. ASKED PT TO PLEASE LET NURSING STAFF KNOW IMMEDIATELY IF HE BECOMES SYMPTOMATIC. ENCOURAGED PT TO WEAR HIS MASK AT ALL TIMES TO AVOID EXPOSURE. DISMISSED IN STABLE CONDITION. SCHEDULED TO RETURN AGAIN IN THE MORNING.
== END ==
LOC: OPONC 11:40
PROVIDERS: ATTEND Specialist
DX: M71.122 Other infective bursitis, left elbow (principal); B95.0 Streptococcus, group A, as the cause of diseases classified elsewhere
CPT/HCPCS: 95000

== ENCOUNTER → 2021-03-13 | Outpatient (CLI) | payer OTHER ==
[2021-03-13 09:55] VITALS: BP 116/81
--- NOTE | 2021-03-13 10:33 | NUR ---
HERE FOR DAILY IV CEFTRIAXONE INFUSION. REPORTS DOING WELL. DENIES N/V/DIARRHEA, FEVER/CHILLS. LEFT ELBOW SPLINT IN PLACE, ARM WRAPPED IN GAUZE AND VAL WRAP WHICH REMAINS INTACT. LEFT HAND WITH SLIGHT SWELLING. MOVES ALL FINGERS WELL. HAVING SOME PAIN, ALMOST OUT OF PAIN MED. ENCOURAGED PT TO ALTERNATE TYLENOL AND IBUPROFEN FOR PAIN MANAGEMENT IF CAN TOLERATE. PT STATES HE HAS YET TO SPEAK WITH DR. PATTERSON'S OFFICE FOR A F/U APPT. ENCOURAGED HIM TO GET THIS DONE SO HE CAN BE EVALUATED. ALSO PLACED A F/U CALL TO [facility]ICE WITH DR. PATTERSON. I SPOKE WITH HER ON THURSDAY TO SEE HOW THEIR OFFICE WOULD HANDLE A F/U APPT WITH HIM SINCE HE HAS NO INSURANCE. WAITING TO HEAR BACK FROM HER. PT TOLERATED INFUSION WELL, DISMISSED IN STABLE CONDITION. SCHEDULED TO RETURN AGAIN IN THE MORNING. PT STATES HE AND ARE WEARING MASKS AT ALL TIMES IN HIS HOUSE SHE TESTED POSITIVE FOR COVID YESTERDAY. HE IS CURRENTLY ASYMPTOMATIC.
== END ==
LOC: OPONC 08:59
PROVIDERS: ATTEND Specialist
DX: M71.122 Other infective bursitis, left elbow (principal); B95.0 Streptococcus, group A, as the cause of diseases classified elsewhere
CPT/HCPCS: 95000

== ENCOUNTER 2021-03-14 11:17 | Emergency (ER) | payer OTHER ==
[~2021-03-14] VITALS: Ht 180.3 cm; Wt 68.0 kg
[~2021-03-14 11:17] MED LIST changes: -NORCO5 PO
[2021-03-14] MEDS ORDERED: NORCO5 PO (15:12)
[2021-03-14 15:31] VITALS: BP 119/82
== END 2021-03-14 15:35 | disposition home or self-care (01) ==
LOC: ER 11:17
DX: S72.325A Nondisplaced transverse fracture of shaft of left femur, initial encounter for closed fracture (principal); I10 Essential (primary) hypertension; Z79.891 Long term (current) use of opiate analgesic; Z79.899 Other long term (current) drug therapy; Z96.653 Presence of artificial knee joint, bilateral; Z88.6 Allergy status to analgesic agent; W18.39XA Other fall on same level, initial encounter; Y93.89 Activity, other specified; Y92.89 Other specified places as the place of occurrence of the external cause; Y99.8 Other external cause status

== ENCOUNTER → 2021-03-14 | Outpatient (CLI) | payer OTHER ==
[2021-03-14 10:38] VITALS: BP 107/66
[2021-03-14 10:44] LABS: HEMATOCRIT 32.7 % (42.0-52.0); HEMOGLOBIN 10.6 gm/dL (14.0-18.0); MCH 31.1 pg (26.0-34.0); MCHC 32.5 g/dL (28.0-37.0); MCV 95.7 fL (80.0-100.0); RBC 3.42 mil/uL (4.50-6.00); RDW 13.5 % (10.5-14.5); WBC 6.3 thou/uL (4.0-11.0)
--- NOTE | 2021-03-14 11:10 | NUR ---
PT HERE FOR DAILY IV CEFTRIAXONE. STATES HAS HAD SIGNIFICANT INCREASE IN PAIN IN LEFT HIP. HAD BEEN HAVING ISSUES WITH THIS HIP SINCE HIS FALL 2 WEEKS AGO BUT YESTERDAY HE STATES HE TOOK THE BUS HOME AND HAD TO WALK [place] TO HIS HOUSE AND PAIN WORSENED AFTER THAT. DENIES FEVER/CHILLS, N/V/DIARRHEA. PICC LINE INTACT. LABS DRAWN. NOTIFIED DR. GALINDO WITH AGREEMENT TO HAVE PT EVALUATED IN THE ED. REACHED PT'S SON TO UPDATE HIM WITH THIS PLAN--HE WILL MEET PT IN THE ED. NOTIFIED PT WHO IS AGREEABLE. PT TEARFUL AND OVERWHELMED. EMOTIONAL SUPPORT GIVEN. CALLED SPIRITUAL CARE TO ASK THEM TO COME VISIT WITH PT IN THE ED. PT TRANSPORTED TO THE ED AND FACILITAED CHECK IN PROCESS WITH THE INTAKE TECH. PT WILL PLAN TO RETURN TO THE INFUSION CLINIC TOMORROW AT 1000 IF ABLE.
[2021-03-14 11:14] LABS: ALBUMIN 2.6 g/dL (3.4-5.0); CALCIUM 8.9 mg/dL (8.5-10.1); CREATININE 0.9 mg/dL (0.7-1.3); POTASSIUM 3.8 mmol/L (3.5-5.1); TOTAL BILIRUBIN 0.2 mg/dL (0.2-1.0); TOTAL PROTEIN 7.5 g/dL (6.4-8.2)
== END ==
LOC: OPONC 09:06
PROVIDERS: ATTEND Specialist
DX: M71.122 Other infective bursitis, left elbow (principal); B95.0 Streptococcus, group A, as the cause of diseases classified elsewhere
CPT/HCPCS: 95000

== ENCOUNTER → 2021-03-15 | Outpatient (CLI) | payer OTHER ==
[~2021-03-15] MED LIST changes: +NORCO5 PO
[2021-03-15 10:30] VITALS: BP 82/49
--- NOTE | 2021-03-15 11:30 | NUR ---
HERE FOR DAILY IV CEFTRIAXONE AND TO SEE DR. GALINDO IN F/U. WAS DISMISSED FROM THE ED YESTERDAY WITH NOTED L HIP NON-DISPLACED FX, NO INTERVENTION REQUIRED. PT STATES THEY DID PRESCRIBE SOME PAIN MEDICATIN FOR HIM. UNWRAPPED L ARM DRESSING FOR DR. GALINDO TO EVALUATE. INCISION INTACT WITH SUTURES, AREA STILL PAINFUL WITH ANY LIGHT TOUCH OR MOVEMENT, SWELLING NOTED IN FOREARM. REACHED NANCY WITH DR. PATTERSON. SHE STATES SHE HAS BEEN TRYING TO REACH PT BUT CANNOT GET THROUGH ON HIS CELL PHONE (WHICH WE HAVE NOTED IS AN ISSUE WELL). [facility] ARRANGED A F/U APPT TODAY SOON PT LEAVES OUR CLINIC. DR. GALINDO IS SWITCHING PT TO ORAL THERAPY. AMOXICILLIN SCRIPT GIVEN TO PATIENT TO BEGIN ORAL THERAPY TOMORROW MORNING. WILL LEAVE PICC IN PLACE UNTIL SEES DR. GALINDO. THAT APPT IS SET UP FOR 03/21 AT 0915. JOSH WITH CASE MANAGEMENT MET WITH PT TO GIVE PAPERWORK FOR MEDICAID APPLICATION. JOSH ALSO HAS PROVIDED PT WITH INFO ON HOW TO SECURE A PCP PT HAS NONE. PT IS FAMILIAR WITH SERVICES AT [facility] AND PLANS TO GO THERE ON THU. PT WILL CONFIRM THIS PLAN WITH JOSH WHO WILL FAX INFO OVER TO [facility] ON ONCE HE HEARS FROM PT. PT'S BP LOW TODAY, 82/49. STATES FEELS A BIT LIGHT HEADED. PT WAS STARTED ON CLONIDINE 0.1MG PO BID IN HOSPITAL AND HAS BEEN TAKING THIS PRESCRIBED AT HOME. CALLED DR. CARDONA WHO GAVE VERBAL ORDER TO HAVE PT STOP THIS MEDICATION. PT GIVEN ALL THE ABOVE INSTRUCTIONS HANDWRITTEN. PT VERBALIZED UNDERSTANDING OF PLAN INCLUDING ALL F/U APPTS AND NEED TO SECURE A PCP. PT DOING A GOOD JOB PROTECTING HIS PICC LINE AND INSTRUCTED TO CALL THE INFUSION CLINIC IF AN ISSUE ARISES WITH THE PICC PRIOR TO SEEING DR. GALINDO ON . ENCOURAGED PT TO INCREASE HIS CALORIC AND PROTEIN INTAKE FOR HEALING PURPOSES. STATES DOES HAVE A GOOD APPETITE. HAS NOT HAD ANY N/V/DIARRHEA, FEVER/CHILLS, COUGH/DYSPNEA. GIVEN SODA TO DRINK PRIOR TO LEAVING CLINIC TODAY AND ENCOURAGED TO ALSO INCREASE FLUID INTAKE. DISMISSED IN STABLE CONDITION. SON TAKING PT STRAIGHT TO DR. PATTERSON'S OFFICE FOR THAT HOSPITAL F/U APPT.
== END ==
LOC: OPONC 03-12 13:34
PROVIDERS: ATTEND Specialist
DX: M71.122 Other infective bursitis, left elbow (principal); B95.0 Streptococcus, group A, as the cause of diseases classified elsewhere
CPT/HCPCS: 95000